=== PATIENT | female | born 1975 | race Caucasian/White ===

== ENCOUNTER 2020-03-09 07:30 | Day surgery (SDC) | payer MEDICAID ==
[~2020-03-09 07:30] MED LIST: Lactated Ringers 1,000 ML IV SCH; Sodium Chloride 0.9% 10 ML SDV IV PRN; Sodium Chloride 0.9% 10 ML Syringe FLUSH PRN; Sodium Chloride 0.9% 2.5 ML Syringe FLUSH PRN; ceFAZolin 2 GM in Premix Bag 1 BAG IV ONE
--- NOTE | 2020-03-09 08:18 | PCM.PREANE ---
Preanesthetic Assessment - Anesthesia/Transfusion/Family Hx Other Type of Anesthesia Reaction Comment: no prior GA Family History of Anesthesia Reaction: No Transfusion History: No Prior Transfusion(s) - Review of Systems General: No Symptoms Pulmonary: No Symptoms Cardiovascular: No Symptoms Gastrointestinal: No Symptoms Neurological: No Symptoms Other: Reports: Anxiety - Physical Assessment NPO Status Date: 03/08/20 Height: 5 ft 7 in Weight: 89.358 kg ASA Class: 2 Mental Status: Alert & Oriented x3 Airway Class: Mallampati = 2 Dentition: Reports: Normal Dentition ROM/Head Extension: Full Lungs: Clear to Auscultation, Normal Respiratory Effort Cardiovascular: Regular Rate, Regular Rhythm - Lab Values: Laboratory Last Values Urine HCG, Qual NEGATIVE (NEGATIVE) 03/09/20 07:30 - Allergies Allergies/Adverse Reactions: Allergies Allergy/AdvReac Type Severity Reaction Status Date / Time ibuprofen Allergy Rash Verified 03/03/20 14:47 - Blood Blood Available: No - Anesthesia Plan Pre-Op Medication Ordered: None - Acknowledgements Anesthesia Type Planned: General Anesthesia Pt an Appropriate Candidate for the Planned Anesthesia: Yes Alternatives and Risks of Anesthesia Discussed w Pt/Guardian: Yes Pt/Guardian Understands and Agrees with Anesthesia Plan: Yes PreAnesthesia Questionnaire HEENT History: Reports: Other (See Below) Other HEENT History: wears glasses/contacts Cardiovascular History: Reports: None Respiratory History: Reports: None Gastrointestinal History: Reports: None Genitourinary History: Reports: None [employer] History: Reports: Other OB/BYN History: ETOP Musculoskeletal History: Reports: None Neurological History: Reports: None Psychiatric History: Reports: Other (See Below) Other Psychiatric History: situational depression Endocrine/Metabolic History: Reports: None Hematologic History: Reports: None Immunologic History: Reports: None Oncologic (Cancer) History: Reports: Breast Dermatologic History: Reports: None - Infectious Disease History Infectious Disease History: Reports: None - Past Surgical History Head Surgeries/Procedures: Reports: None HEENT Surgical History: Reports: Oral Surgery Cardiovascular Surgical History: Reports: None Respiratory Surgical History: Reports: None GI Surgical History: Reports: None Female Surgical History: Reports: Breast Biopsy, Section, Other (See Below) Other Female Surgeries/Procedures: ETOP, needle biopsy rt breast Endocrine Surgical History: Reports: None Neurological Surgical History: Reports: None Musculoskeletal Surgical History: Reports: None Oncologic Surgical History: Reports: None Dermatological Surgical History: Reports: None - SUBSTANCE USE Tobacco Use Status *Q: Never Tobacco User - HOME MEDS Home Medications: Home Meds Acetaminophen [Tylenol Extra Strength] 2 tab PO ASDIRECTED PRN 03/03/20 [History] Doxylamine Succinate [Sleep Aid] 1 tab PO BEDTIME PRN 03/03/20 [History] - CURRENT (IN HOUSE) MEDS Current Meds: Current Medications Lactated Ringer's (Ringers, Lactated) 1,000 mls @ 125 mls/hr IV ASDIRECTED SOLOMON Sodium Chloride (Saline Flush) 2.5 ml FLUSH ASDIRECTED PRN PRN Reason: Keep Vein Open Sodium Chloride (Normal Saline) 10 ml IV ASDIRECTED PRN PRN Reason: IV Use Sodium Chloride (Saline Flush) 10 ml FLUSH ASDIRECTED PRN PRN Reason: Keep Vein Open Discontinued Medications Cefazolin Sodium/Dextrose 2 gm (/ Premix) 50 mls @ 100 mls/hr IV ONETIME ONE Stop: 03/07/20 14:31
[2020-03-09] MEDS ORDERED: Midazolam 1 MG/ML 2 ML SDV ONE ×2 (08:22→08:40)
[2020-03-09] MEDS ORDERED: Propofol 200 MG/20 ML SDV ONE (08:39)
[2020-03-09] MEDS ORDERED: Lidocaine 2% 5 ML SDV ONE (08:39)
[2020-03-09] MEDS ORDERED: fentaNYL 100 MCG/2 ML SDV ONE (08:40)
[2020-03-09] MEDS ORDERED: Glycopyrrolate 0.2 MG/ML SDV ONE (08:40)
[2020-03-09] MEDS ORDERED: ePHEDrine 50 MG/ML SDV ONE (08:41)
[2020-03-09] MEDS ORDERED: EPINEPHrine 1:10,000 1 MG/10 ML Syringe IVPUSH PRN (08:53)
[2020-03-09] MEDS ORDERED: Naloxone 0.4 MG/ML Syringe IVPUSH PRN (08:53)
[2020-03-09] MEDS ORDERED: Albuterol 0.083% 2.5 MG/3 ML Neb Soln NEB PRN (08:53)
[2020-03-09] MEDS ORDERED: Atropine 0.1 MG/ML 10 ML Syringe IVPUSH PRN ×2 (08:53)
[2020-03-09] MEDS ORDERED: 50% Dextrose in Water 50 ML Syringe IVPUSH PRN (08:53)
[2020-03-09] MEDS ORDERED: fentaNYL 100 MCG/2 ML SDV IVPUSH PRN (08:53)
[2020-03-09] MEDS ORDERED: Acetaminophen/oxyCODONE 325-5 MG Tab PO PRN (09:24)
--- NOTE | 2020-03-09 09:27 | PCM.OPNOTE ---
- General Post-Op/Procedure Note Date of Surgery/Procedure: 03/09/20 Operative Procedure(s): Left subclavian port a cath placement Findings: Small left internal jugular vein, so port a cath placed in left subclavian vein without difficulties Pre Op Diagnosis: Breast cancer Post-Op Diagnosis: same Anesthesia Technique: MAC Primary Surgeon: Carmen Davila Fluid Replacement, Intraop: 1,000 EBL in mLs: 5 Condition: Good
[2020-03-09] MEDS ORDERED: Bupivacaine 0.5% 10 ML SDV ONE (09:33)
[2020-03-09] MEDS ORDERED: Heparin Sodium 100 Units/ML 3 ML Syringe ONE (09:33)
--- NOTE | 2020-03-09 09:49 | PCM.POSTAN ---
POST ANESTHESIA ASSESSMENT - MENTAL STATUS Mental Status: Alert, Oriented - VITAL SIGNS Vital Signs: Last Vital Signs Temp 97.2 F 03/09/20 09:18 Pulse 97 03/09/20 09:44 Resp 18 03/09/20 09:44 BP 120/50 L 03/09/20 09:44 Pulse Ox 100 03/09/20 09:44 - RESPIRATORY Respiratory Status: Respiratory Rate WNL, Airway Patent, O2 Saturation Stable - CARDIOVASCULAR CV Status: Pulse Rate WNL, Blood Pressure Stable - GASTROINTESTINAL GI Status: No Symptoms - POST OP HYDRATION Hydration Status: Adequate & Stable
--- NOTE | 2020-03-09 09:49 | PCM48HPAN ---
Post Anesthesia Note - EVALUATION WITHIN 48HRS OF ANESTHETIC Vital Signs in Normal Range: Yes Patient Participated in Evaluation: Yes Respiratory Function Stable: Yes Airway Patent: Yes Cardiovascular Function Stable: Yes Hydration Status Stable: Yes Pain Control Satisfactory: Yes Nausea and Vomiting Control Satisfactory: Yes Mental Status Recovered: Yes Vital Signs: Last Vital Signs Temp 97.2 F 03/09/20 09:18 Pulse 97 03/09/20 09:44 Resp 18 03/09/20 09:44 BP 120/50 L 03/09/20 09:44 Pulse Ox 100 03/09/20 09:44
[2020-03-09] MEDS ORDERED: Octyl 2-Cyanoacrylate 1 Tube ONE (10:15)
--- NOTE | 2020-03-09 10:15 | CR ---
INDICATION: Port placement COMPARISON: No prior chest radiographs TECHNIQUE: Single-view portable chest radiograph FINDINGS: TUBES AND LINES: Left-sided port ending in the SVC. HEART AND MEDIASTINUM: The heart size is normal. The mediastinal contour appears normal for patient age. LUNGS AND PLEURAL SPACES: The lungs appear normal.There pleural spaces are unremarkable. OSSEOUS STRUCTURES: Age-appropriate appearance. No acute focal finding. IMPRESSION: Left-sided port ending in the SVC. Normal-appearing lungs and pleural spaces. Dictated by Berto Rivas MD @ Mar 09 2020 10:12AM Signed by Dr. Berto Rivas @ Mar 09 2020 10:14AM
--- NOTE | 2020-03-09 10:42 | OR ---
SURGEON: CARMEN DAVILA MD DATE OF PROCEDURE: 03/09/2020 PREOPERATIVE DIAGNOSIS: Breast cancer. POSTOPERATIVE DIAGNOSIS: Breast cancer. PROCEDURE PERFORMED: Left subclavian Port-A-Cath placement. PRIMARY SURGEON: Carmen Davila MD. ANESTHESIA: General LMA. FLUIDS: 1000 mL crystalloid. ESTIMATED BLOOD LOSS: 5 mL. FINDINGS: A small left internal jugular vein, so left subclavian vein used instead without difficulty. COMPLICATIONS: None. INDICATIONS: The patient is a 44-year-old female with breast cancer. She is in need of a Port-A-Cath to begin chemotherapy treatment. I explained the procedure, expected perioperative course, and risks. She verbalized understanding and wishes to proceed. PROCEDURE IN DETAIL: The patient was brought into the OR and placed on the OR table in supine position. A time-out was completed verifying the patient's name, age, date of , allergies, and procedure to be performed. A general LMA anesthesia was induced. A shoulder roll was tucked into the patient's shoulders and both arms were tucked to the patient's side. Using an ultrasound, I identified the left internal jugular vein and left carotid artery. The left internal jugular vein was quite small, in fact it was smaller than the carotid artery itself. The decision was made to attempt to gain access into this, but with the plan to attempt a left subclavian vein approach or even a right internal jugular vein approach should I be unable to complete this. The left and right neck as well as the left and right chest were then prepped and draped in usual standard fashion. Using the ultrasound, I identified the left neck vascular anatomy. I anesthetized the area overlying the left internal jugular vein. Using ultrasound guidance, I attempted to gain access into the left internal jugular vein. Given how small it was, I had difficulty inserting the needle even using the ultrasound probe. Three passes were attempted and I was unable to get good venous return. The needle was removed and I instead decided to turn my attention to the left subclavian vein. Using my bony landmarks, I passed the guide needle underneath the clavicle and immediately I gained access into the left subclavian vein. A good return of venous blood was noted. A guidewire was placed down the needle without difficulty. C-arm was brought in and I could see good placement of the guidewire into the superior vena cava. The guidewire was secured to the drapes, and I turned my attention to the left anterior chest wall. I anesthetized the area with a 1:1 mixture of 0.5% Marcaine plain and 1% lidocaine plain. A 3 cm incision was made 2 fingerbreadths below the insertion site of the guidewire using a 15 blade. Electrocautery was used to dissect down to level of subcutaneous fat and to create a subcutaneous pocket for the Port-A- Cath device to sit into. The catheter tubing was then tunneled from this pocket up to the guidewire insertion site. Using fluoroscopy, a vascular sheath and dilator were placed over the guidewire and used to dilate up my vascular tract. The guidewire and dilator were removed and the catheter tubing was placed down the sheath under fluoroscopic guidance. The vascular sheath was pulled away. I then pulled the catheter tubing back into the SVC using fluoroscopy. On the distal end of the catheter tubing, I aspirated a good return of venous blood. The catheter tubing was then flushed with injectable saline. I trimmed the catheter tubing to size and placed it on the end of the Port-A-Cath device. The port was then placed in the chest wall pocket. I accessed the port with a Childs needle and had a good return of venous blood. The port and catheter tubing were then flushed and locked with 3 mL of heparinized saline. I then secured the Port-A-Cath device in the subcutaneous chest wall pocket using interrupted 2-0 Prolene sutures on either side. The chest wall pocket was then closed with interrupted 3-0 Vicryl sutures in the subcutaneous fat layer and the skin was closed with running 4-0 Monocryl stitch. My insertion site above this was closed with interrupted 4-0 Monocryl suture. Dermabond was applied to the incision sites as well as my needle access site on the neck. Sterile dressings were placed over my chest wall incisions. The patient tolerated the procedure well. Throughout the procedure, the patient was in Trendelenburg position. At the end of the case, she was flattened out. She was extubated and taken to PACU in stable condition. OLIVIA SCHAFER /[id number] STEPHANIE
--- NOTE | 2020-03-09 16:29 | CR ---
INDICATION: Port-A-Cath TECHNIQUE: Intraoperative C-arm fluoroscopy for Port-A-Cath placement. IMPRESSION: Intraoperative C-arm fluoroscopy was provided. Fluoroscopy time 35.8 seconds. One images were captured. Dictated by Charlie Matias MD @ Mar 09 2020 4:26PM Signed by Dr. Charlie Matias @ Mar 09 2020 4:28PM
== END 2020-03-09 11:05 | disposition home or self-care (01) ==
LOC: MW.SDS 07:30
PROVIDERS: ATTEND Surgery
DX: C50.911 Malignant neoplasm of unspecified site of right female breast (principal); N63.0 Unspecified lump in unspecified breast; F32.9 Major depressive disorder, single episode, unspecified; Z88.8 Allergy status to other drugs, medicaments and biological substances; Z79.899 Other long term (current) drug therapy
CPT/HCPCS: 36561; 71045; 76000; 81025; A9270; C1788; J1642; J2001; J2250; J2704; J3490; J7120; J3010

== ENCOUNTER 2020-06-10 19:06 | Emergency (ER) | payer MEDICAID ==
[2020-06-10] MEDS ORDERED: Sodium Chloride 0.9% 1,000 ML IV ONE ×4 (19:30→19:44)
[2020-06-10] MEDS ORDERED: Sodium Chloride 0.9% 10 ML Syringe FLUSH PRN (19:30)
[2020-06-10] MEDS ORDERED: Sodium Chloride 0.9% 2.5 ML Syringe FLUSH PRN (19:30)
[2020-06-10] MEDS ORDERED: Vancomycin 1.5 GM in Dextrose 5% in Water 250 ML IV STA ×2 (19:30)
[2020-06-10] MEDS ORDERED: Cefepime 2 GM in Sodium Chloride 0.9% 50 ML IV ONE (19:30)
[2020-06-10] MEDS ORDERED: Ampicillin 2 GM in Sodium Chloride 0.9% 100 ML IV ONE (19:40)
[2020-06-10] MEDS ORDERED: Dexamethasone 10 MG/ML SDV IVPUSH STA (19:41)
[2020-06-10] MEDS ORDERED: Acetaminophen 650 MG Supp RECTAL ONE (19:44)
[2020-06-10] MEDS ORDERED: Ondansetron 4 MG/2 ML SDV IVPUSH ONE (19:52)
[2020-06-10 19:59] LABS: BLOOD UREA NITROGEN,BUN 11 mg/dL (7.0-18.0); CARBON DIOXIDE,CO2 25.3 mmol/L (21.0-32.0); CHLORIDE,CL 103 mmol/L (98-107); GLUCOSE RANDOM 113 mg/dL (74-106); POTASSIUM,K 3.7 mmol/L (3.5-5.1); SODIUM,NA 139 mmol/L (136-145)
[2020-06-10] MEDS ORDERED: Iopamidol 755 MG/ML 500 ML Multipack Bottle IVPUSH STA (20:34)
--- NOTE | 2020-06-10 20:43 | CR ---
Indication: Sepsis Technique: Chest 1 view Comparison: Chest x-ray 03/09/2020 Findings/Impression: Cardiovascular and mediastinum: Normal heart size with left-sided Port-A-Cath with tip at the cavoatrial junction. Lungs and pleural space: Lungs are clear. No sign of infiltrate or mass. No sign of pleural effusion. No pneumothorax. Bones and soft tissues: No acute findings. Dictated by Sarkis Beach MD @ Jun 10 2020 8:33PM Signed by Dr. Sarkis Beach @ Jun 10 2020 8:42PM
[2020-06-10] MEDS ORDERED: Cefepime 2 GM in Premix Bag 1 BAG IV ONE (20:50)
--- NOTE | 2020-06-10 21:13 | CT ---
INDICATION: Seizure, breast cancer TECHNIQUE: CT head without contrast. COMPARISON: None. FINDINGS: CSF spaces: Within normal limits for age. Brain parenchyma: The stoll-white differentiation is normal. No sign of mass, hemorrhage, or midline shift. Skull base and calvarium: The visualized paranasal sinuses and mastoid air cells demonstrate no acute or significant findings. The visualized orbits are grossly unremarkable. No skull fractures. IMPRESSION: Unremarkable noncontrast head CT. Please note that all CT scans at this facility use dose modulation, iterative reconstruction, and/or weight-based dosing when appropriate to reduce radiation dose to as low as reasonably achievable. Dictated by Sarkis Beach MD @ Jun 10 2020 9:05PM Signed by Dr. Sarkis Beach @ Jun 10 2020 9:12PM
[2020-06-10] MEDS ORDERED: Ketorolac 30 MG/ML SDV IVPUSH ONE (23:27)
--- NOTE | 2020-06-11 03:13 | EDM.PDOC ---
ED HPI GENERAL MEDICAL PROBLEM - General Chief Complaint: Neuro Symptoms/Deficits Stated Complaint: SEIZURE Time Seen by Provider: 06/10/20 19:13 - History of Present Illness INITIAL COMMENTS - FREE TEXT/NARRATIVE: CHIEF COMPLAINT(S): Seizure HISTORY OF PRESENT ILLNESS: This is a 44-year-old woman with a past medical history of breast cancer with metastasis to lymph nodes who is currently on chemotherapy who presents to the emergency department via EMS with a chief complaint of seizure. Per EMS: The patient had a seizure prior to arrival. The family stated that it has where she started staring and then had generalized s haking of her upper and lower extremities. There is a report of urinary incontinence. They stated that in route her vitals were stable and they did provide 2.5 mg of IM Versed. Per family no history of seizures. Otherwise history is limited secondary to patient clinical condition. REVIEW OF SYSTEMS: Unable to obtain secondary patient clinical condition ONCOLOGY: Dr. Myers PAST MEDICAL HISTORY: Breast cancer with metastasis to lymph nodes on chemotherapy. No history of seizure disorder. SURGICAL HISTORY: As per history of present illness and as reviewed below otherwise noncontributory. SOCIAL HISTORY: As per history of present illness and as reviewed below otherwise noncontributory. FAMILY HISTORY: As per history of present illness and as reviewed below otherwise noncontributory. EXAMINATION OF ORGAN SYSTEMS/BODY AREAS: VITALS: Blood pressure was 146/73, heart rate 111, respiratory rate 18 with an oxygen saturation 97% on room air. Temperature 38.4 rectally. GENERAL: Obese woman who is in no acute distress is alert but confused. HEAD: Normocephalic, atraumatic. EYES: EOMs intact. PERRL. ENT. External ears WNL. Nares patent. Oropharynx is clear with no erythema or exudate. No uvular or tongue swelling. No tongue laceration. NECK: Supple, no masses. Trachea is midline. LUNGS: No tachypnea or intercostal retractions. Clear to auscultation bilaterally, no wheezing, no rales, no stridor, no rhonchi. CARDIOVASCULAR: Tachycardic but regular. No murmur, rubs, gallop. No edema. No JVD. ABDOMEN: Soft, non-distended, non-tender. Bowel sounds present in all 4 q uadrants. No rebound tenderness, guarding, or peritoneal signs. MUSCULOSKELETAL: No deformity. Patient is moving all 4 limbs spontaneously. NEUROLOGICAL: The patient is alert and oriented x1. Patient is confused limiting neurological examination.. SKIN: No rashes, or pallor. No signs of injury. MEDICAL DECISION MAKING AND COURSE IN THE ED WITH INTERPRETATION/REVIEW OF DIAGNOSTIC STUDIES: This is a 44-year-old woman with a past medical history of breast cancer with lymph node metastasis on chemotherapy who presents to the emergency department via EMS with a chief complaint of seizure. Immediately upon entering the resuscitation room the patient was disrobed, placed on continuous cardiac monitoring, and IV access was established by nursing. Patient is able to speak thus displaying a patent airway, breath sounds are equal bilaterally, and patient has palpable pulses in all 4 extremities. At this time further history was obtained and it appeared that the patient had an additional seizure in the morning. Per family member Bella and her boyfriend whom we spoke to the patient does not have any known metastasis to the brain. They deny that she has ever had any seizures in the past. Given that the patient is febrile and tachycardic and that she is on chemotherapy I am concerned about sepsis. There are no overt signs of infection as the cause of sepsis on examination however given the seizures we will cover for meningitis and provide the patient with Decadron prior to administration of antibiotics. Will obtain septic labs including blood cultures x2. we will place the patient on seizure precautions. I did contact [facility] and spoke with Dr. Myers. They reiterated that the patient does not have any metastasis to the brain. I did have a discussion with them regarding appropriate imaging to obtain prior to lumbar puncture. They recommended CT head with and without contrast given that there is no MRI capability. Therefore we will obtain a CT head with and without contrast as the patient will likely need a lumbar puncture. Given the fever we did provide the patient with rectal Tylenol as the patient was still postictal at this time. We did initially order 30 cc/kg of normal saline bolus however we will administer 1 bolus at a time until lactic acid does return. Will obtain a Covid swab. Laboratory: CBC reveals a leukocytosis of 25.85 with lymphopenia and segmented neutrophils. Coags are within normal limits. Lactic acid is 2.0. CMP is unremarkable except for hypoalbuminemia at 3.2. Covid is negative. Urinalysis was a clean catch and was negative for leukocyte esterase, negative for nitrites, and negative for blood. Interpretation: negative. The radiological images were viewed by myself along with reading the report from the radiologist. Chest x-ray does not reveal any acute cardiopulmonary process. CT head with and without contrast does not reveal any acute abnormality. Initial CT head report indicated that it was only read for the CT noncontrast. Therefore we contacted [facility] and spoke with the radiologist. We did get a verbal report that the CT with contrast was negative. After CT was negative I did reevaluate the patient. At this time she was alert and oriented x4 and stated that she did have a headache and neck pain. She denies any chest pain, shortness of breath, abdominal pain, nausea or vomiting. She denies any dysuria. She does not recall the seizure at home but she was told at home that she did have one this morning. On examination there was some neck tenderness with flexion and extension of her neck. No obvious meningeal signs. At this time I did discuss with her that given her neck pain, fever, leukocytosis I am concerned about the possibility of meningitis versus encephalitis. I discussed that we would need to perform a lumbar puncture. She was amenable to this plan. Procedure note Consent was obtained and placed in the chart [place] precautions were taken. The area was prepped with povidone and the skin was locally anesthetized with 1% lidocaine. A spinal needle with stylette was inserted between the L4 and L5 spinous processes. Initial attempt did not yield any CSF. Repositioning to L5 and L6 did not yield any CSF. This is limited likely secondary patient body habitus. Therefore we attempted to position the patient upright and attempted additional time. CSF was not obtained this time. Procedure stopped. After the procedure I did discuss that I was unable to get any CSF. I discussed that given the concern for meningitis, need for possible interventional r adiology support to obtain a lumbar puncture, breast cancer with her oncologist at [facility] I would like to transfer her to [facility]. They were amenable to this plan. I contacted [facility] and spoke with Dr. Myers who did recommend transfer and admission under the hospitalist. Therefore I spoke with Dr. Youngblood who accepted the patient the patient will be flown via fixed wing. At this time I also started the patient on acyclovir IV. The patient's fever did not come down despite antipyretic relief. The patient is allergic to Motrin therefore no further antipyretics were provided prior to flight. PROCEDURES: Lumbar puncture, cardiac monitoring interpretation, pulse oximetry interpretation DISPOSITION: The patient was transferred to [facility] via flight in stable condition CONDITION: Serious FINAL IMPRESSION(S)/DIAGNOSES: 1. Acute sepsis, source unknown 2. Acute possible meningitis versus encephalitis 3. Metastatic breast cancer Critical Care Procedure Note Authorized and performed by: Yasmani Allison M.D. Critical Care Time: 74 minutes Due to a high probability of clinically significant, life threatening deterioration, the patient required my highest level of preparedness to intervene emergently and I personally spent this critical care time directly and personally managing the patient. This critical care time included obtaining a history, examining the patient, pulse oximetry; ordering and review of studies; arranging urgent treatment with development of a management plan; evaluation of a patients response to treatment; frequent assessment; and discussions with other providers. This critical care time was performed to assess and manage the high probability of imminent, life threatening deterioration that could result in multiorgan failure. It was exclusive of separate billable procedures and treating other patients. Please see MDM section and rest of the note for further information on patient assessment and treatment. generalized Pain Score (Numeric/FACES): 8 - Related Data Allergies Allergy/AdvReac Type Severity Reaction Status Date / Time ibuprofen Allergy Rash Verified 06/10/20 19:22 Home Meds: Home Meds Acetaminophen [Tylenol Extra Strength] 2 tab PO ASDIRECTED PRN 03/03/20 [History] Doxylamine Succinate [Sleep Aid] 1 tab PO BEDTIME PRN 03/03/20 [History] Past Medical History HEENT History: Reports: Other (See Below) Other HEENT History: wears glasses/contacts Cardiovascular History: Reports: None Respiratory History: Reports: None Gastrointestinal History: Reports: None Genitourinary History: Reports: None CHERRY SORTER History: Reports: Other CHERRY SORTER History: ETOP Musculoskeletal History: Reports: None Neurological History: Reports: None Psychiatric History: Reports: Other (See Below) Other Psychiatric History: situational depression Endocrine/Metabolic History: Reports: None Hematologic History: Reports: None Immunologic History: Reports: None Oncologic (Cancer) History: Reports: Breast Dermatologic History: Reports: None - Infectious Disease History Infectious Disease History: Reports: None - Past Surgical History Head Surgeries/Procedures: Reports: None HEENT Surgical History: Reports: Oral Surgery Cardiovascular Surgical History: Reports: None Respiratory Surgical History: Reports: None GI Surgical History: Reports: None Female Surgical History: Reports: Breast Biopsy, Section, Other (See Below) Other Female Surgeries/Procedures: ETOP, needle biopsy rt breast Endocrine Surgical History: Reports: None Neurological Surgical History: Reports: None Musculoskeletal Surgical History: Reports: None Oncologic Surgical History: Reports: None Dermatological Surgical History: Reports: None Social & Family History - Family History Family Medical History: No Pertinent Family History - Caffeine Use Caffeine Use: Reports: None - Recreational Drug Use Recreational Drug Use: No ED ROS GENERAL - Review of Systems Review Of Systems: See Below ED EXAM, GENERAL - Physical Exam Exam: See Below Course - Vital Signs Last Recorded V/S: Last Vital Signs Temp 38.2 C H 06/10/20 23:00 Pulse 100 06/10/20 23:21 Resp 18 06/10/20 23:21 BP 100/50 L 06/10/20 23:21 Pulse Ox 94 L 06/10/20 23:21 - Orders/Labs/Meds Orders: Active Orders 24 hr Category Date Time Status Blood Pressure Mgt: Sepsis [RC] Q15MX2 Care 06/10/20 19:37 Active Cardiac Monitoring [RC] CONTINUOUS Care 06/10/20 19:36 Active Overnight Pulse Oximetry [RC] Click to Edit Care 06/10/20 19:37 Active CULTURE BLOOD [BC] Stat Lab 06/10/20 19:20 Received CULTURE BLOOD [BC] Stat Lab 06/10/20 20:02 Results Sodium Chloride 0.9% [Saline Flush] Med 06/10/20 19:30 Active 10 ml FLUSH ASDIRECTED PRN Sodium Chloride 0.9% [Saline Flush] Med 06/10/20 19:30 Active 2.5 ml FLUSH ASDIRECTED PRN Blood Culture x2 Reflex Set [OM.PC] Stat Oth 06/10/20 19:35 Ordered Pulse Oximetry Continuous Monitoring [OM.PC] Routine Oth 06/10/20 19:30 Ordered Saline Lock Insert [OM.PC] Stat Oth 06/10/20 19:35 Ordered Seizure Precautions [OM.PC] Stat Oth 06/10/20 19:44 Ordered Severe Sepsis Onset Time [OM.PC] Stat Oth 06/10/20 19:35 Ordered Medication Orders Sodium Chloride (Saline Flush) 10 ml FLUSH ASDIRECTED PRN PRN Reason: Keep Vein Open Last Admin: 06/10/20 19:52 Dose: 10 ml Documented by: [id number] Sodium Chloride (Saline Flush) 2.5 ml FLUSH ASDIRECTED PRN PRN Reason: Keep Vein Open Last Admin: 06/10/20 19:52 Dose: 2.5 ml Documented by: [id number] Labs: Laboratory Tests 06/10/20 06/10/20 06/10/20 Range/Units 19:20 19:20 19:20 WBC 25.85 H (4.0-11.0) K/uL RBC 3.19 L (4.30-5.90) M/uL Hgb 10.5 L (12.0-16.0) g/dL Hct 31.7 L (36.0-46.0) % MCV 99.4 H (80.0-98.0) fL MCH 32.9 H (27.0-32.0) pg MCHC 33.1 (31.0-37.0) g/dL RDW Std Deviation 56.5 (28.0-62.0) fl RDW Coeff of Leobardo 16 H (11.0-15.0) % Plt Count 178 (150-400) K/uL MPV 8.60 (7.40-12.00) fL Add Manual Diff YES Neutrophils % (Manual) 78 (48.0-80.0) % Band Neutrophils % 15 % Lymphocytes % (Manual) 5 L (16.0-40.0) % Monocytes % (Manual) 2 (0.0-15.0) % Nucleated RBC % 0.0 /100WBC Absolute Seg Neuts 20.2 H (1.4-5.7) Band Neutrophils # 3.9 Lymphocytes # (Manual) 1.3 (0.6-2.4) Monocytes # (Manual) 0.5 (0.0-0.8) Nucleated RBCs # 0 K/uL INR 1.02 Lactate 2.0 (0.20-2.00) mmol/L Sodium (136-145) mmol/L Potassium (3.5-5.1) mmol/L Chloride (98-107) mmol/L Carbon Dioxide (21.0-32.0) mmol/L BUN (7.0-18.0) mg/dL Creatinine (0.6-1.0) mg/dL Est Cr Clr Drug Dosing mL/min Estimated GFR (MDRD) ml/min Glucose (74-106) mg/dL Calcium (8.5-10.1) mg/dL Total Bilirubin (0.2-1.0) mg/dL AST (15-37) IU/L ALT (14-63) IU/L Alkaline Phosphatase (46-116) U/L Total Protein (6.4-8.2) g/dL Albumin (3.4-5.0) g/dL Globulin (2.6-4.0) g/dL Albumin/Globulin Ratio (0.9-1.6) Urine Color Urine Appearance Urine pH (5.0-8.0) Ur Specific Wylie (1.001-1.035) Urine Protein (NEGATIVE) mg/dL Urine Glucose (UA) (NEGATIVE) mg/dL Urine Ketones (NEGATIVE) mg/dL Urine Occult Blood (NEGATIVE) Urine Nitrite (NEGATIVE) Urine Bilirubin (NEGATIVE) Urine Urobilinogen (<2.0) EU/dL Ur Leukocyte Esterase (NEGATIVE) Urine RBC (0-2/HPF) Urine WBC (0-5/HPF) Ur Epithelial Cells (NONE-FEW) Urine Bacteria (NEGATIVE) SARS-CoV-2 RNA (SHARRI) (NEGATIVE) 06/10/20 06/10/20 06/10/20 Range/Units 19:20 21:05 23:35 WBC (4.0-11.0) K/uL RBC (4.30-5.90) M/uL Hgb (12.0-16.0) g/dL Hct (36.0-46.0) % MCV (80.0-98.0) fL MCH (27.0-32.0) pg MCHC (31.0-37.0) g/dL RDW Std Deviation (28.0-62.0) fl RDW Coeff of Leobardo (11.0-15.0) % Plt Count (150-400) K/uL MPV (7.40-12.00) fL Add Manual Diff Neutrophils % (Manual) (48.0-80.0) % Band Neutrophils % % Lymphocytes % (Manual) (16.0-40.0) % Monocytes % (Manual) (0.0-15.0) % Nucleated RBC % /100WBC Absolute Seg Neuts (1.4-5.7) Band Neutrophils # Lymphocytes # (Manual) (0.6-2.4) Monocytes # (Manual) (0.0-0.8) Nucleated RBCs # K/uL INR Lactate (0.20-2.00) mmol/L Sodium 139 (136-145) mmol/L Potassium 3.7 (3.5-5.1) mmol/L Chloride 103 (98-107) mmol/L Carbon Dioxide 25.3 (21.0-32.0) mmol/L BUN 11 (7.0-18.0) mg/dL Creatinine 0.7 (0.6-1.0) mg/dL Est Cr Clr Drug Dosing 101.81 mL/min Estimated GFR (MDRD) > 60.0 ml/min Glucose 113 H (74-106) mg/dL Calcium 8.5 (8.5-10.1) mg/dL Total Bilirubin 0.4 (0.2-1.0) mg/dL AST 19 (15-37) IU/L ALT 23 (14-63) IU/L Alkaline Phosphatase 75 (46-116) U/L Total Protein 6.4 (6.4-8.2) g/dL Albumin 3.2 L (3.4-5.0) g/dL Globulin 3.2 (2.6-4.0) g/dL Albumin/Globulin Ratio 1.0 (0.9-1.6) Urine Color YELLOW Urine Appearance CLEAR Urine pH 6.5 (5.0-8.0) Ur Specific Wylie 1.015 (1.001-1.035) Urine Protein NEGATIVE (NEGATIVE) mg/dL Urine Glucose (UA) NEGATIVE (NEGATIVE) mg/dL Urine Ketones NEGATIVE (NEGATIVE) mg/dL Urine Occult Blood NEGATIVE (NEGATIVE) Urine Nitrite NEGATIVE (NEGATIVE) Urine Bilirubin NEGATIVE (NEGATIVE) Urine Urobilinogen 0.2 (<2.0) EU/dL Ur Leukocyte Esterase NEGATIVE (NEGATIVE) Urine RBC 0-1 (0-2/HPF) Urine WBC 0-1 (0-5/HPF) Ur Epithelial Cells FEW (NONE-FEW) Urine Bacteria RARE (NEGATIVE) SARS-CoV-2 RNA (SHARRI) NEGATIVE (NEGATIVE) Meds: Medications Generic Name Dose Route Start Last Admin Trade Name Freq PRN Reason Stop Dose Admin Sodium Chloride 10 ml 06/10/20 19:30 06/10/20 19:52 Saline Flush FLUSH 10 ml ASDIRECTED PRN Administration Keep Vein Open Sodium Chloride 2.5 ml 06/10/20 19:30 06/10/20 19:52 Saline Flush FLUSH 2.5 ml ASDIRECTED PRN Administration Keep Vein Open Discontinued Medications Generic Name Dose Route Start Last Admin Trade Name Saloni PRN Reason Stop Dose Admin Acetaminophen 650 mg 06/10/20 19:44 06/10/20 19:55 Tylenol RECTAL 06/10/20 19:45 650 mg NOW ONE Administration Dexamethasone 16 mg 06/10/20 19:41 06/10/20 19:52 Decadron IVPUSH 06/10/20 19:42 16 mg ONETIME STA Administration Vancomycin HCl 1.5 gm/ 250 mls @ 167 mls/hr 06/10/20 19:30 06/10/20 20:53 Dextrose/Water IV 06/10/20 20:59 Not Given ONETIME STA Cefepime HCl 2 gm/ Sodium 50 mls @ 100 mls/hr 06/10/20 19:30 06/10/20 20:52 Chloride IV 06/10/20 19:59 Not Given STAT ONE Ampicillin Sodium 2 gm/ Sodium 100 mls @ 200 mls/hr 06/10/20 19:40 06/10/20 20:56 Chloride IV 06/10/20 20:09 200 mls/hr ONETIME ONE Administration Sodium Chloride 1,000 mls @ 999 mls/hr 06/10/20 19:44 06/10/20 19:51 Normal Saline IV 06/10/20 20:44 999 mls/hr .BOLUS ONE Administration Sodium Chloride 1,000 mls @ 999 mls/hr 06/10/20 19:44 06/10/20 19:51 Normal Saline IV 06/10/20 20:44 999 mls/hr .BOLUS ONE Administration Sodium Chloride 1,000 mls @ 999 mls/hr 06/10/20 19:44 06/10/20 23:55 Normal Saline IV 06/10/20 20:44 999 mls/hr .BOLUS ONE Administration Vancomycin HCl 1.5 gm/ Premix 300 mls @ 200 mls/hr 06/10/20 20:00 06/10/20 22:08 IV 06/10/20 21:29 200 mls/hr ONETIME ONE Administration Cefepime HCl 2 gm/ Premix 50 mls @ 100 mls/hr 06/10/20 20:50 06/10/20 20:51 IV 06/10/20 21:19 100 mls/hr ONETIME ONE Administration Acyclovir 1,000 mg/ Sodium 270 mls @ 250 mls/hr 06/10/20 23:22 06/10/20 23:56 Chloride IV 06/11/20 00:26 250 mls/hr ONETIME ONE Administration Iopamidol 50 ml 06/10/20 20:34 06/10/20 20:35 Isovue Multipack-370 (76%) IVPUSH 06/10/20 20:35 50 ml ONETIME STA Administration Ketorolac Tromethamine 15 mg 06/10/20 23:27 06/10/20 23:56 Toradol IVPUSH 06/10/20 23:28 Not Given ONETIME ONE Lidocaine HCl Confirm 06/10/20 22:37 06/10/20 23:57 Xylocaine-Mpf 1% Administered 06/10/20 22:38 Not Given Dose 5 ml .ROUTE .STK-MED ONE Lidocaine HCl 5 ml 06/10/20 22:58 06/10/20 23:57 Xylocaine-Mpf 1% INJECT 06/10/20 22:59 5 ml ONETIME ONE Administration Ondansetron HCl 4 mg 06/10/20 19:52 06/10/20 20:53 Zofran IVPUSH 06/10/20 19:53 4 mg ONETIME ONE Administration Departure - Departure Time of Disposition: 00:01 Disposition: DC/Tfer to Acute Hospital 02 Clinical Impression: Seizure Sepsis Qualifiers: Sepsis type: sepsis due to unspecified organism Sepsis acute organ dysfunction status: without acute organ dysfunction Qualified Code(s): A41.9 - Sepsis, unspecified organism - Discharge Information Referrals: Allyson Plasencia [Primary Care Provider] - Forms: ED Department Discharge Sepsis Event Note (ED) - Evaluation Sepsis Screening Result: No Definite Risk - Focused Exam Vital Signs: Vital Signs Temp Temp Pulse Resp BP Pulse Ox 06/10/20 23:21 100 18 100/50 L 94 L 06/10/20 23:00 38.2 C H 06/10/20 22:58 100 18 107/52 L 93 L 06/10/20 21:51 100 18 127/66 96 06/10/20 21:00 96 18 119/62 100 06/10/20 19:55 38.8 C H 06/10/20 19:41 100 18 147/91 H 99 06/10/20 19:37 147/91 H 06/10/20 19:10 38.4 C H 111 H 18 146/73 H 97 - My Orders Last 24 Hours: My Active Orders 06/10/20 19:20 CULTURE BLOOD [BC] Stat 06/10/20 19:30 Sodium Chloride 0.9% [Saline Flush] 10 ml FLUSH ASDIRECTED PRN Sodium Chloride 0.9% [Saline Flush] 2.5 ml FLUSH ASDIRECTED PRN Pulse Oximetry Continuous Monitoring [OM.PC] Routine 06/10/20 19:35 Blood Culture x2 Reflex Set [OM.PC] Stat Saline Lock Insert [OM.PC] Stat Severe Sepsis Onset Time [OM.PC] Stat 06/10/20 19:36 Cardiac Monitoring [RC] CONTINUOUS 06/10/20 19:37 Blood Pressure Mgt: Sepsis [RC] Q15MX2 Overnight Pulse Oximetry [RC] Click to Edit 06/10/20 19:44 Seizure Precautions [OM.PC] Stat 06/10/20 20:02 CULTURE BLOOD [BC] Stat - Assessment/Plan Last 24 Hours: My Active Orders 06/10/20 19:20 CULTURE BLOOD [BC] Stat 06/10/20 19:30 Sodium Chloride 0.9% [Saline Flush] 10 ml FLUSH ASDIRECTED PRN Sodium Chloride 0.9% [Saline Flush] 2.5 ml FLUSH ASDIRECTED PRN Pulse Oximetry Continuous Monitoring [OM.PC] Routine 06/10/20 19:35 Blood Culture x2 Reflex Set [OM.PC] Stat Saline Lock Insert [OM.PC] Stat Severe Sepsis Onset Time [OM.PC] Stat 06/10/20 19:36 Cardiac Monitoring [RC] CONTINUOUS 06/10/20 19:37 Blood Pressure Mgt: Sepsis [RC] Q15MX2 Overnight Pulse Oximetry [RC] Click to Edit 06/10/20 19:44 Seizure Precautions [OM.PC] Stat 06/10/20 20:02 CULTURE BLOOD [BC] Stat
== END 2020-06-11 ==
LOC: MW.ED 19:06
DX: A41.9 Sepsis, unspecified organism (principal); R56.9 Unspecified convulsions; Z20.822 Contact with and (suspected) exposure to COVID-19; C50.919 Malignant neoplasm of unspecified site of unspecified female breast; C77.9 Secondary and unspecified malignant neoplasm of lymph node, unspecified; Z88.6 Allergy status to analgesic agent
CPT/HCPCS: 70470; 71045; 80053; 81001; 83605; 85025; 85610; 87040; 87077; 87186; 87635; 96365; 96367; 96368; 96375; 99291; A9270; J0133; J0290; J0692; J1100; J2405; J3370; J7030; J7050; Q9967; 99285-25; J2001; U0002

== ENCOUNTER 2021-05-11 06:30 | Day surgery (SDC) | payer MEDICAID ==
[~2021-05-11 06:30] MED LIST changes: -Sodium Chloride 0.9% 10 ML SDV IV PRN; +Sodium Chloride 0.9% 20 ML SDV IV PRN
--- NOTE | 2021-05-11 08:56 | PCM.PREANE ---
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, currently on anti-sz med but will be tapering and go off soon.) Other: Reports: None - Physical Assessment NPO Status Date: 05/10/21 NPO Status Time: 20:00 Vital Signs: Last Vital Signs Temp 97.7 F 05/11/21 07:08 Pulse 91 05/11/21 07:08 Resp 16 05/11/21 07:08 BP 115/67 05/11/21 07:08 Pulse Ox 97 05/11/21 07:08 Height: 5 ft 7 in Weight: 93.44 kg ASA Class: 2 Mental Status: Alert & Oriented x3 Airway Class: Mallampati = 3 Dentition: Reports: Normal Dentition Thyro-Mental Finger Breadths: 3 Mouth Opening Finger Breadths: 3 ROM/Head Extension: Full Lungs: Clear to Auscultation, Normal Respiratory Effort Cardiovascular: Regular Rate, Regular Rhythm - Lab Values: Laboratory Last Values Urine HCG, Qual NEGATIVE (NEGATIVE) 05/11/21 06:45 - Allergies Allergies/Adverse Reactions: Allergies Allergy/AdvReac Type Severity Reaction Status Date / Time ibuprofen Allergy Rash Verified 05/08/21 12:20 - Acknowledgements Anesthesia Type Planned: General Anesthesia Pt an Appropriate Candidate for the Planned Anesthesia: Yes Alternatives and Risks of Anesthesia Discussed w Pt/Guardian: Yes Pt/Guardian Understands and Agrees with Anesthesia Plan: Yes PreAnesthesia Questionnaire HEENT History: Reports: Other (See Below) Other HEENT History: wears glasses/contacts Cardiovascular History: Reports: None Respiratory History: Reports: None Gastrointestinal History: Reports: None Genitourinary History: Reports: None Other Genitourinary History: Invasive Ductal Carcinoma of right breast [employer] History: Reports: Other OB/BYN History: ETOP Musculoskeletal History: Reports: None Neurological History: Reports: None Other Neuro History: seizures the end May 2019, none before or after Psychiatric History: Reports: Other (See Below) Other Psychiatric History: situational depression Endocrine/Metabolic History: Reports: None Hematologic History: Reports: None Immunologic History: Reports: None Other Immunologic History: has finished Chemotherapy Oncologic (Cancer) History: Reports: Breast Dermatologic History: Reports: None - Infectious Disease History Infectious Disease History: Reports: None - Past Surgical History Head Surgeries/Procedures: Reports: None HEENT Surgical History: Reports: Oral Surgery Other HEENT Surgeries/Procedures: wisdom teeth removed Cardiovascular Surgical History: Reports: None Other Cardiovascular Surgeries/Procedures: port-a-cath placement for sara motherapy Respiratory Surgical History: Reports: None GI Surgical History: Reports: None Female Surgical History: Reports: Breast Biopsy, Section, Other (See Below) Other Female Surgeries/Procedures: ETOP, needle biopsy rt breast Endocrine Surgical History: Reports: None Neurological Surgical History: Reports: None Musculoskeletal Surgical History: Reports: None Oncologic Surgical History: Reports: None Dermatological Surgical History: Reports: None - SUBSTANCE USE Tobacco Use Status *Q: Never Tobacco User Recreational Drug Use History: No - HOME MEDS Home Medications: Home Meds Acetaminophen [Tylenol Extra Strength] 2 tab PO Q6H PRN 03/03/20 [History] Ondansetron [Zofran Odt] 8 mg PO ASDIRECTED PRN 05/08/21 [History] Prochlorperazine Maleate 10 mg PO Q6H PRN 05/08/21 [History] Venlafaxine HCl [Venlafaxine ER] 37.5 mg PO DAILY 05/08/21 [History] diphenhydrAMINE [Benadryl] 25 mg PO BEDTIME PRN 05/08/21 [History] levETIRAcetam [Keppra] 1,000 mg PO BID 05/08/21 [History] levETIRAcetam [Keppra] 250 mg PO BID 05/08/21 [History] - CURRENT (IN HOUSE) MEDS Current Meds: Current Medications Lactated Ringer's (Ringers, Lactated) 1,000 mls @ 125 mls/hr IV ASDIRECTED SOLOMON Last Admin: 05/11/21 06:44 Dose: 125 mls/hr Documented by: Sodium Chloride (Sodium Chloride 0.9% 2.5 Ml Syringe) 2.5 ml FLUSH ASDIRECTED PRN PRN Reason: Keep Vein Open Sodium Chloride (Sodium Chloride 0.9% 20 Ml Sdv) 10 ml IV ASDIRECTED PRN PRN Reason: IV Use Sodium Chloride (Sodium Chloride 0.9% 10 Ml Syringe) 10 ml FLUSH ASDIRECTED PRN PRN Reason: Keep Vein Open Discontinued Medications Cefazolin Sodium/Dextrose 2 gm (/ Premix) 50 mls @ 100 mls/hr IV ONETIME ONE Stop: 05/08/21 12:45
[2021-05-11] MEDS ORDERED: Bupivacaine 0.5% 10 ML SDV ONE (09:38)
[2021-05-11] MEDS ORDERED: Octyl 2-Cyanoacrylate 1 Tube ONE ×2 (09:38→10:30)
[2021-05-11] MEDS ORDERED: Propofol 200 MG/20 ML SDV ONE (09:43)
[2021-05-11] MEDS ORDERED: Midazolam 1 MG/ML 2 ML SDV ONE (09:43)
[2021-05-11] MEDS ORDERED: fentaNYL 100 MCG/2 ML SDV ONE (09:43)
[2021-05-11] MEDS ORDERED: Lidocaine 2% 5 ML SDV ONE (09:43)
--- NOTE | 2021-05-11 10:50 | PCM.POSTAN ---
POST ANESTHESIA ASSESSMENT - MENTAL STATUS Mental Status: Alert, Oriented - VITAL SIGNS Vital Signs: Last Vital Signs Temp 97.7 F 05/11/21 07:08 Pulse 91 05/11/21 07:08 Resp 16 05/11/21 07:08 BP 115/67 05/11/21 07:08 Pulse Ox 97 05/11/21 07:08 - RESPIRATORY Respiratory Status: Respiratory Rate WNL, Airway Patent, O2 Saturation Stable - CARDIOVASCULAR CV Status: Pulse Rate WNL, Blood Pressure Stable - GASTROINTESTINAL GI Status: No Symptoms - PAIN Pain Score: 0 - POST OP HYDRATION Hydration Status: Adequate & Stable
--- NOTE | 2021-05-11 10:56 | PCM48HPAN ---
Post Anesthesia Note - EVALUATION WITHIN 48HRS OF ANESTHETIC Vital Signs in Normal Range: Yes Patient Participated in Evaluation: Yes Respiratory Function Stable: Yes Airway Patent: Yes Cardiovascular Function Stable: Yes Hydration Status Stable: Yes Pain Control Satisfactory: Yes Nausea and Vomiting Control Satisfactory: Yes Mental Status Recovered: Yes Vital Signs: Last Vital Signs Temp 97.7 F 05/11/21 07:08 Pulse 91 05/11/21 07:08 Resp 16 05/11/21 07:08 BP 115/67 05/11/21 07:08 Pulse Ox 97 05/11/21 07:08 - COMMENTS/OBSERVATIONS Free Text/Narrative:: Pt doing well post-op. VSS. No apparent anesthetic complications. Dr. Abel Key
--- NOTE | 2021-05-11 10:57 | PCM.OPNOTE ---
- General Post-Op/Procedure Note Date of Surgery/Procedure: 05/11/21 Operative Procedure(s): Left subclavian port a cath removal Findings: Intact left subclavian port Pre Op Diagnosis: History of breast cancer, port in place Post-Op Diagnosis: same Anesthesia Technique: General Mask, Local Primary Surgeon: Carmen Davila Fluid Replacement, Intraop: 650 EBL in mLs: 2 Condition: Good
--- NOTE | 2021-05-11 22:36 | OR ---
SURGEON: CARMEN DAVILA MD DATE OF PROCEDURE: 05/11/2021 PREOPERATIVE DIAGNOSES: History of breast cancer, Port-A-Cath in place. POSTOPERATIVE DIAGNOSES: History of breast cancer, Port-A-Cath in place. PROCEDURE PERFORMED: Left subclavian Port-A-Cath removal. PRIMARY SURGEON: Carmen Davila MD ANESTHESIA: General mask, local. FLUIDS: 650 mL crystalloid. ESTIMATED BLOOD LOSS: 2 mL. FINDINGS: Intact left subclavian Port-A-Cath. COMPLICATIONS: None. INDICATIONS: The patient is a 45-year-old female who has completed chemotherapy for breast cancer and would like to have her Port-A-Cath removed. The patient and I discussed the procedure, expected perioperative course, and the risks. She verbalized understanding and wishes to proceed. PROCEDURE IN DETAIL: The patient was brought into the OR and placed on the OR cart in supine position. A time-out was completed verifying the patient's name, age, date of , allergies, and procedure to be performed. General mask anesthesia was induced. The left chest wall was prepped and draped in usual standard fashion. I anesthetized the area overlying the Port-A-Cath device on the left anterior chest wall with 0.5% Marcaine plain. A 15 blade was used to make an incision over the patient's previous scar. I then used cautery to dissect down to the level of the Port-A-Cath. The scar capsule was entered and dissected free of the attachments using sharp dissection with the Metzenbaum scissors as well as electrocautery. The sutures on either side of the Port-A-Cath were removed. Once the attachments of the Port-A-Cath to the surrounding scar capsule were completely dissected free. Gentle pressure was used to remove the Port-A-Cath and the associated tubing from the operative site. The Port-A-Cath and the tubing appeared to be intact. Pressure was held along the catheter tubing tract for 1 minute. Pressure was released and there was no evidence of bleeding. I inspected the operative site. Hemostasis was achieved with electrocautery. The wound was then closed with interrupted layers of 3-0 Vicryl suture in the subcutaneous fat layer. The skin was closed with a running 4-0 Monocryl stitch. Dermabond and sterile dressings were applied. The patient tolerated the procedure well, was awoken and taken to PACU in stable condition. All counts were complete and correct at the end of the case. OLIVIA / HANH /[id number]
== END 2021-05-11 11:30 | disposition home or self-care (01) ==
LOC: MW.SDS 06:30
PROVIDERS: ATTEND Surgery
DX: Z45.2 Encounter for adjustment and management of vascular access device (principal); C50.911 Malignant neoplasm of unspecified site of right female breast; R56.9 Unspecified convulsions; Z79.899 Other long term (current) drug therapy; Z98.890 Other specified postprocedural states
CPT/HCPCS: 36590; 81025; A9270; J0690; J2250; J2704; J3010; J3490; J7120; 00400